=== PATIENT | male | born 1985 | race Caucasian/White ===

== ENCOUNTER 2017-07-18 22:30 | Emergency (ER) | payer SELFPAY ==
[2017-07-18 22:39] VITALS: TEMP 97.9
[2017-07-18] MEDS ORDERED: HYDROmorphone 1 MG/ML 1 ML SYRINGE IVP STA (22:57)
[2017-07-18] MEDS ORDERED: DIAZEPAM 5 MG/ML 2 ML SYRINGE IVP STA (22:57)
--- NOTE | 2017-07-18 23:02 | ED ---
Back Pain HPI - General Chief Complaint: Back Pain/Injury Stated Complaint: Back Pain Time Seen by Provider: 07/18/17 22:35 Source: patient Limitations: no limitations - History of Present Illness Initial Comments: 32-year-old male patient presents to emergency department today for evaluation of lower back spasms. Patient states he has a history of herniated disc with chronic back pain. Patient states that he is usually able to treat his flareups with anti-inflammatory pain medication. He states that today the pain is been consistent all day, states that it started to radiate into his legs and down to the back of his knees. He states that he has been unable to bend forward without causing significant spasms and pain. He states that tonight when he went to get into bed his back went into spasm. He states it was the worst pain hes ever had. He states that he could not move without causing severe pain. He states that he did have to call an ambulance for this. He denies any numbness or tingling in his legs. He denies any loss of bowel or bladder control. Denies any saddle anesthesia. He denies any abdominal pain, nausea, vomiting, dizziness, weakness, hematuria, dysuria, urinary urgency or urinary frequency. Denies any constipation or diarrhea. His any fever or chills. - Related Data Home Medications Medication Instructions Recorded Confirmed Cetirizine HCl [Zyrtec] 10 mg PO DAILY 07/18/17 07/18/17 Citalopram Hydrobromide [CeleXA] 40 mg PO DAILY 07/18/17 07/18/17 Previous Rx's Medication Instructions Recorded Diazepam [Valium] 5 mg PO TID #10 tab 07/19/17 Hydrocodone/Acetaminophen [[place] 1 tab PO Q6HR PRN #15 tab 07/19/17 5-325] Allergies Allergy/AdvReac Type Severity Reaction Status Date / Time tree nut Allergy Anaphylaxis Verified 07/18/17 22:53 Review of Systems ROS Statement: Those systems with pertinent positive or pertinent negative responses have been documented in the HPI. ROS Other: All systems not noted in ROS Statement are negative. Past Medical History Additional Past Medical History / Comment(s): herniated disc History of Any Multi-Drug Resistant Organisms: None Reported Past Surgical History: No Surgical Hx Reported Past Psychological History: Depression Smoking Status: Former smoker Past Alcohol Use History: Occasional Past Drug Use History: None Reported General Exam Limitations: no limitations General appearance: alert, in no apparent distress, other (This is a well- developed, well-nourished adult male patient in no acute distress. Vital signs upon presentation are temperature 97.9F, pulse 85, respirations 18, blood pressure 138/72, pulse ox 98% on room air.) Eye exam: Present: normal appearance, PERRL, EOMI. Absent: scleral icterus, conjunctival injection, periorbital swelling ENT exam: Present: normal exam, normal oropharynx, mucous membranes moist Neck exam: Present: normal inspection. Absent: tenderness, meningismus, lymphadenopathy Respiratory exam: Present: normal lung sounds bilaterally. Absent: respiratory distress, wheezes, rales, rhonchi, stridor Cardiovascular Exam: Present: regular rate, normal rhythm, normal heart sounds. Absent: systolic murmur, diastolic murmur, rubs, gallop, clicks GI/Abdominal exam: Present: soft, normal bowel sounds. Absent: distended, tenderness, guarding, rebound, rigid Extremities exam: Present: normal inspection, full ROM, normal capillary refill , other (Skin is pink, warm, and dry.). Absent: tenderness, pedal edema, joint swelling, calf tenderness Back exam: Present: normal inspection. Absent: tenderness, vertebral tenderness Neurological exam: Present: alert, oriented X3, CN II-XII intact Psychiatric exam: Present: normal affect, normal mood Skin exam: Present: warm, dry, intact, normal color. Absent: rash Course Vital Signs 07/18/17 07/19/17 22:33 01:26 Temperature 97.9 F 97.9 F Pulse Rate 85 76 Respiratory 18 20 Rate Blood Pressure 138/72 121/65 O2 Sat by Pulse 98 98 Oximetry Medical Decision Making - Medical Decision Making 32-year-old male patient presented for evaluation of lower back spasms. Patient did have improvement of symptoms after receiving IV Dilaudid and Valium. Was able to turn and sit up in the bed. When patient attempted to stand up he did have return of spasms. He was given 1 mg of Dilaudid IM and 5 mg of Valium IM. Patient was able to ambulate without difficulty after these medications took effect. Physical examination was unremarkable. Neurologically intact. He'll be discharged home to follow-up with his primary care physician and the spinal specialist for a recheck. He is instructed to return here immediately for any new, worsening, or concerning symptoms. He verbalizes understanding and agrees with this plan. Disposition Clinical Impression: Back spasm Disposition: HOME SELF-CARE Condition: Good Instructions: Muscle Spasm (ED), Back Pain (ED), Lower Back Exercises (ED) Additional Instructions: Take medications as directed. Follow-up with primary care physician for recheck in 1-2 days. Follow-up with the cash processing specialist as discussed. Return here immediately for any new, worsening, or concerning symptoms. Prescriptions: Diazepam [Valium] 5 mg PO TID #10 tab Hydrocodone/Acetaminophen [[place] 5-325] 1 tab PO Q6HR PRN #15 tab PRN Reason: Pain Referrals: Mando Kirkland MD [STAFF PHYSICIAN] - 1-2 days Esther Chase DO [Doctor of Osteopathic Medicine] - 1-2 days Time of Disposition: 00:17
[2017-07-19] MEDS ORDERED: DIAZEPAM 5 MG/ML 2 ML SYRINGE IM ONE (00:52)
[2017-07-19] MEDS ORDERED: HYDROmorphone 1 MG/ML 1 ML SYRINGE IM STA (01:03)
[2017-07-19 01:29] VITALS: BP 121/65; PULSE 76; RESP 20
== END 2017-07-19 02:01 | disposition home or self-care (01) ==
LOC: EC 22:30
DX: M62.830 Muscle spasm of back (principal); F32.9 Major depressive disorder, single episode, unspecified; Z87.891 Personal history of nicotine dependence; Z91.018 Allergy to other foods; Z79.899 Other long term (current) drug therapy
CPT/HCPCS: 99284 ×2; 96374 ×2; 96375 ×2; 96372 ×3; J3360 ×2; J1170 ×2